=== PATIENT | male | born 1980 | race Caucasian/White ===

== ENCOUNTER 2024-06-04 15:49 | Outpatient (AMB) | payer OTHER, SELFPAY ==
[2024-06-04 15:56] VITALS: BP 122/86; PULSE 86; O2SAT 98; BMI 29.4
--- NOTE | 2024-06-04 15:56 | MHC.PC.OV ---
Vital Signs 06/04/24 15:56 Height 5 ft 9 in Weight 199 lb BMI 29.4 BP 122/86 Blood Pressure Location Rt brachial Position Sitting Pulse 86 Pulse Source Pulse Oximeter Pulse Oximetry (%) 98 Oxygen Delivery Method Room Air Intake Visit Reasons: DM Follow up Allergies SEASONAL ALLERGIES Allergy (Mild, Uncoded 06/18/22 15:48) ITCHY EYES Tobacco use date assessed: 06/04/24 Dental Screening Dental Screen Date: 06/04/24 Did you have a dental visit in the last 12 months?: Yes Did you have a dental problem in the last 6 months where you did not have access to dental care?: No Was dental information given to patient?: Patient has dentist HPI HPI Comments History of Present Illness Details 44 y/o male patient who presents to the clinic for T2DM. Patient of Kalen Callejas. Patient was last seen by PCP 2021. He presents today asking for Metformin refills. Reports that he has been getting automatic refills of Metformin for 1 year from PCP. He ran out of medications 3 weeks ago. His Last Lab work by PCP 2021. His A1C today Amb 11% Pt also used to follow up with Dr. Marcum for DVT and was taking Xaletro. He was last seen there last year and he has missed a few appointments. Pt reports that Dr. Marcum's Office has not returned his messages and they won't refill Xaletro until he is seen in person. Pt states that he does not have time to come to appointments because he has work. [facility] Medical History Kidney calculi Left leg DVT Type 2 diabetes mellitus Family History Mother Diabetes Myocardial infarct Prothrombin gene mutation Stroke Mental health disorder Daughter Prothrombin gene mutation Brother Substance use disorder Social History (Updated 05/09/22 @ 16:11 by Anjali Franco) Household Members: Spouse and Family Housing: House Patient Tobacco Use Status: Former Tobacco user e-Cigarette/Vaping Use: Never Used Second Hand Smoke Exposure: No service: No Current occupational status: employed Current occupation: [employer] Cognitive needs: No Hearing needs: No Vision needs: No Questionnaire PHQ-9 Over the last 2 weeks, how often have you been bothered by any of the following problems? 1. Little interest or pleasure in doing things: not at all 2. Feeling down, depressed, or hopeless: not at all 3. Trouble falling or staying asleep, or sleeping too much: not at all 4. Feeling tired or having little energy: not at all 5. Poor appetite or overeating: not at all 6. Feeling bad about yourself - or that you are a failure or have let yourself or your family down: not at all 7. Trouble concentrating on things, such as reading the newspaper or watching television: not at all 8. Moving or speaking so slowly that other people could have noticed. Or the opposite - being so fidgety or restless that you have been moving around a lot more than usual: not at all 9. Thoughts that you would be better off or of hurting yourself in some way: not at all Total score: 0 Depression Screening Interpretation: Negative Depression Screening Done: Yes 65250 - PHQ-9 Billing: Yes Source: Developed by Drs. Jorge Bartholomew, Tisha Brown, Akash Rhodes and colleagues, with an educational polo from [employer]. Thrive Questionnaire Date Thrive assessed: 06/04/24 I am a: Patient What is your living situation today?: I have a steady place to live Within the past 12 months, did the food you bought not last and you didn't have the money to get more?: Never true Within the past 12 months, did you worry whether your food would run out before you got money to buy more?: Never true Do you have trouble paying for medicines?: No Do you have trouble getting transportation to medical appointments?: No Do you have trouble paying your heating and electricity bill?: No Do you have trouble taking care of your child, family member or friend?: No Do you have trouble with day-to-day activities such as bathing, preparing meals, shopping, managing finances, etc.?: No Are you currently unemployed and looking for a job?: No Are you interested in more education?: No Please select the resources that you would like help with: None Currently or been in a relationship where the following occur: No concerns reported THRIVE Score: 0 AUDIT C Alcohol Use Questionnaire (AUDIT-C) 1. How often do you have a drink containing alcohol?: 2-3 times a week 2. How many drinks containing alcohol do you have on a typical day when you are drinking?: 3 or 4 3. How often do you have six or more drinks on one occasion?: Never Total Score: 4 Score Reviewed/Action Taken: Yes FRANCOIS-7 AMB Questionnaire FRANCOIS-7 Date FRANCOIS - 7 assessed: 06/04/24 Feeling nervous, anxious, or on edge: 0 = Not at all Not being able to stop or control worryin = Not at all Worrying too much about different things: 0 = Not at all Trouble relaxin = Not at all Being so restless that it is hard to sit still: 0 = Not at all Becoming easily annoyed or irritable: 0 = Not at all Feeling afraid as if something awful might happen: 0 = Not at all Total FRANCOIS-7 score (0-4 normal; 5-9 mild; 10-14 moderate; 15-21 severe): 0 Source: Developed by Drs. Jorge Bartholomew, Tisha Brown, Akash Rhodes and colleagues, with an educational polo from [employer]. FRANCOIS-7 Assessment Billing FRANCOIS-7 Assessment Tool: FRANCOIS-7 Assessment 15960 Review of Systems Const All systems reviewed & are unremarkable except as noted in HPI and below Physical exam (Primary Care) Vital Signs: Last Vital Signs Pulse 86 06/04/24 15:56 BP 122/86 06/04/24 15:56 Pulse Ox 98 06/04/24 15:56 Oxygen Delivery Method Room Air 06/04/24 15:56 BMI result Body Mass Index 29.4 Tobacco/Smoking Status: Tobacco use Status Tobacco use date assessed 06/04/24 06/04/24 15:59 Patient Tobacco Use Status Former Tobacco user 06/04/24 15:59 e-Cigarette/Vaping Use Never Used 06/04/24 15:59 PHQ-9: PHQ-9 Score PHQ-9: Total score 0 06/04/24 16:18 Depression Screening Interpretation: Negative Thrive Assessment: Date of Thrive Assessment Date Thrive assessed 06/04/24 06/04/24 15:59 Currently or been in a relationship where the following occur: No concerns reported Const General: no acute distress Orientation/consciousness: patient oriented x3 Neuro General: patient oriented x3, gait normal and moves all extremities Extrem General: Yes full ROM Psych Speech and movement: Normal speech and movement present Results AMB Hemoglobin A1c AMB Hemoglobin A1c 11.5 % Last Edit by DESIREE Solomon on 06/04/24 16:22 Results Reviewed Results Reviewed: Laboratory Last Values Hgb A1c (Clinic) 11.5 % (4.0-6.0) H 06/04/24 16:16 Coding Level of Care Code Est Pt Level 4 (24177) Diagnoses Type 2 diabetes mellitus with hyperglycemia, without long-term current use of insulin E11.65 Diabetes mellitus complication status: with hyperglycemia Diabetes mellitus jail insulin use: without jail use Chronic deep vein thrombosis (DVT) of lower extremity, unspecified laterality, unspecified vein I82.509 DVT location: lower extremity Affected thrombotic vein of extremity: unspecified vein of extremity Chronicity: chronic Laterality: unspecified laterality Additional Codes FRANCOIS-7 Assessment Billing - FRACNOIS-7 Assessment Tool: FRANCOIS-7 Assessment 36347 ([id number]) PHQ-9 - 62761 - PHQ-9 Billing: Yes ([id number]) Time Spent (min) 20 Assessment & Plan Assessment & Plan (1) Type 2 diabetes mellitus: Code(s): E11.9 - Type 2 diabetes mellitus without complications Category: Medical Qualifiers: Diabetes mellitus complication status: with hyperglycemia Diabetes mellitus oysterman insulin use: without jail use Qualified Code(s): E11.65 - Type 2 diabetes mellitus with hyperglycemia Plan: Ordered Labs to be done LENNY Informed Pt that I will not refill Metformin until I receive recent Lab work on Kidneys and Liver. Discussed in length Insulin and other injectable on additional to Oral medications. Pt did not seen to be interested on this idea. He mostly wanted his Metformin refilled. Discussed long-term effects of uncontrolled T2DM on major organs. (2) DVT (deep venous thrombosis): Code(s): I82.409 - Acute embolism and thrombosis of unspecified deep veins of unspecified lower extremity Category: Medical Qualifiers: DVT location: lower extremity Affected thrombotic vein of extremity: unspecified vein of extremity Chronicity: chronic Laterality: unspecified laterality Qualified Code(s): I82.509 - Chronic embolism and thrombosis of unspecified deep veins of unspecified lower extremity Plan: Adviced Pt that he will need to schedule an appointment with Dr. Marcum for f/u. Orders: Orders AMB Hemoglobin A1c Today Z13.9 - Encounter for screening, unspecified Complete Blood Count Auto Diff Today E11.65 - Type 2 diabetes mellitus with hyperglycemia Comprehensive Met. Panel Today E11.65 - Type 2 diabetes mellitus with hyperglycemia TSH reflex Free T4 Today E11.65 - Type 2 diabetes mellitus with hyperglycemia Hemoglobin A1c Today E11.65 - Type 2 diabetes mellitus with hyperglycemia Lipid Panel Today E11.65 - Type 2 diabetes mellitus with hyperglycemia
== END 2024-06-04 16:55 | disposition home or self-care (01) ==
LOC: HO.HMCC 15:49
PROVIDERS: PCP Nurse Practitioner Family; Visit Provider Nurse Practitioner Family
DX: E11.65 Type 2 diabetes mellitus with hyperglycemia (principal); I82.509 Chronic embolism and thrombosis of unspecified deep veins of unspecified lower extremity; Z13.9 Encounter for screening, unspecified

== ENCOUNTER → 2024-06-04 15:49 | Outpatient (BNVA) | payer OTHER, SELFPAY | PROVIDERS: PCP Nurse Practitioner Family; Visit Provider Nurse Practitioner Family | DX: E11.65 Type 2 diabetes mellitus with hyperglycemia (principal); I82.509 Chronic embolism and thrombosis of unspecified deep veins of unspecified lower extremity | CPT/HCPCS: 83036; 96127 ==

== ENCOUNTER 2024-06-06 08:10 | Outpatient (REF) | payer OTHER, SELFPAY ==
[2024-06-06 11:13] LABS: MANUAL DIFF FLAG NO
[2024-06-06 11:27] LABS: Basophils Absolute Auto 0.1 X10*3/uL (0.0-0.2); Basophils Percent Auto 1.1 % (0-2); Eosinophils Absolute Auto 0.2 X10*3/uL (0.0-0.4); Eosinophils Percent Auto 2.8 % (0-4); Hematocrit 44.8 % (42.0-52.0); Hemoglobin 15.9 g/dl (14.0-18.0); Imm Gran Abs Auto 0.04 X10*3/uL (0.00-0.03); Imm Gran Pct Auto 0.5 % (0.0-0.4); Lymphocytes Absolute Auto 1.9 X10*3/uL (1.2-4.9); Mean Corpuscular HGB Conc 35.5 g/dl (31.0-36.0); Mean Corpuscular Hemoglobin 30.5 pg (27.0-33.0); Mean Corpuscular Volume 85.8 fL (80.0-98.0); Mean Platelet Volume 9.8 fL (9.4-12.4); Monocytes Absolute Auto 0.7 X10*3/uL (0.1-1.2); Monocytes Percent Auto 8.9 % (2-11); Neutrophils Absolute Auto 4.5 x10*3/uL (2.0-8.3); Neutrophils Percent Auto 60.7 % (45-73); Platelet Count 210 X10*3/uL (160-400); Red Blood Count 5.22 X10*6/uL (4.60-5.80); Red Cell Distribution Width 11.9 % (11.0-16.0); White Blood Count 7.5 X10*3/uL (4.8-10.8)
[2024-06-06 11:36] LABS: Estimated Average Glucose 283 mg/dL; Hemoglobin A1C 430.0246 umol/L; Hemoglobin A1c % 11.5 % (<6.0); Total Hemoglobin (HGBA1C) 4193.0216 umol/L
[2024-06-06 11:49] LABS: Alanine Aminotransferase 31 U/L (0-40); Albumin Level 4.4 g/dL (3.5-5.0); Alkaline Phosphatase 56 U/L (39-117); Anion Gap 15 (12-20); Aspartate Amino Transferase 23 U/L (5-37); Bilirubin Total 0.6 mg/dL (0.0-1.0); Blood Urea Nitrogen 22 mg/dL (9-16); Calcium 8.8 mg/dL (8.4-10.2); Carbon Dioxide 26 mmol/L (22-29); Chloride 100 mmol/L (96-108); Cholesterol 207 mg/dL (<200); Estimated Glomerular Filt Rate > 60; Glucose Random 345 mg/dL (60-115); HDL Cholesterol 79 mg/dL (>40); LDL Cholesterol Calculated 111 mg/dL (<100); Potassium 4.5 mmol/L (3.3-5.1); Sodium 136 mmol/L (135-145); Total Protein 7.4 g/dL (6.5-8.0); Triglycerides 86 mg/dL (<150)
[2024-06-06 11:53] LABS: TSH reflex Free T4 0.66 uIU/mL (0.32-4.0)
== END 2024-06-06 08:11 | disposition home or self-care (01) ==
LOC: HO.HMGCLDS 08:10
PROVIDERS: PCP Nurse Practitioner Family; Visit Provider Nurse Practitioner Family
DX: E11.65 Type 2 diabetes mellitus with hyperglycemia (principal)
CPT/HCPCS: 36415; 80053; 80061; 83036; 84443; 85025

== ENCOUNTER → 2024-06-08 16:20 | Outpatient (BNV) | payer OTHER, SELFPAY | PROVIDERS: PCP Nurse Practitioner Family; Visit Provider Internal Medicine | DX: D68.52 Prothrombin gene mutation (principal); Z86.718 Personal history of other venous thrombosis and embolism; Z79.01 Long term (current) use of anticoagulants | CPT/HCPCS: 99214 ==

== ENCOUNTER 2025-01-14 06:01 | Outpatient (REF) | payer BC, SELFPAY ==
[2025-01-14 10:20] LABS: Appearance Urine Clear; Color Urine Yellow; Glucose Urine UA >=1000 mg/dL (Negative); Leukocyte Esterase Urine Negative (Negative); Nitrite Urine Negative (Negative); Specific Gravity - Urine >= 1.030 (1.005-1.025); UMIC TRIGGER UACC YES; Urine Blood Moderate (2+) (Negative); Urine Ketones Trace mg/dL (Negative); Urine Protein Negative (Neg-Trace)
[2025-01-14 10:23] LABS: Bacteria Urine None Seen (None Seen); Hyaline Casts Urine 0-2 /LPF (0-2); RBC Urine >20 /HPF (0-2); Squamous Epithelial Cell Urine 0-2 /HPF (0-2); WBC Urine 0-5 /HPF (0-5)
[2025-01-14 10:28] LABS: MANUAL DIFF FLAG NO
[2025-01-14 10:33] LABS: Basophils Absolute Auto 0.1 X10*3/uL (0.0-0.2); Basophils Percent Auto 0.9 % (0-2); Eosinophils Absolute Auto 0.1 X10*3/uL (0.0-0.4); Eosinophils Percent Auto 2.2 % (0-4); Hematocrit 42.2 % (42.0-52.0); Hemoglobin 14.8 g/dl (14.0-18.0); Imm Gran Abs Auto 0.03 X10*3/uL (0.00-0.03); Imm Gran Pct Auto 0.6 % (0.0-0.4); Lymphocytes Absolute Auto 1.6 X10*3/uL (1.2-4.9); Lymphocytes Percent Auto 30.3 % (20-40); Mean Corpuscular HGB Conc 35.1 g/dl (31.0-36.0); Mean Corpuscular Hemoglobin 30.5 pg (27.0-33.0); Mean Platelet Volume 9.8 fL (9.4-12.4); Monocytes Absolute Auto 0.5 X10*3/uL (0.1-1.2); Monocytes Percent Auto 9.6 % (2-11); Neutrophils Absolute Auto 3.1 x10*3/uL (2.0-8.3); Neutrophils Percent Auto 56.4 % (45-73); Platelet Count 190 X10*3/uL (160-400); Red Blood Count 4.85 X10*6/uL (4.60-5.80); Red Cell Distribution Width 12.1 % (11.0-16.0); White Blood Count 5.4 X10*3/uL (4.8-10.8)
[2025-01-14 11:13] LABS: Alanine Aminotransferase 22 U/L (0-40); Albumin Level 4.3 g/dL (3.5-5.0); Alkaline Phosphatase 47 U/L (39-117); Anion Gap 12 (12-20); Aspartate Amino Transferase 22 U/L (5-37); Bilirubin Total 0.6 mg/dL (0.0-1.0); Blood Urea Nitrogen 16 mg/dL (9-16); Calcium 9.1 mg/dL (8.4-10.2); Carbon Dioxide 30 mmol/L (22-29); Chloride 100 mmol/L (96-108); Cholesterol 192 mg/dL (<200); Estimated Glomerular Filt Rate > 60; Glucose Fasting 319 mg/dL (60-99); HDL Cholesterol 74 mg/dL (>40); LDL Cholesterol Calculated 108 mg/dL (<100); Sodium 138 mmol/L (135-145); Total Protein 6.8 g/dL (6.5-8.0); Triglycerides 52 mg/dL (<150)
[2025-01-14 11:15] LABS: TSH reflex Free T4 1.02 uIU/mL (0.32-4.0)
[2025-01-14 11:55] LABS: Creatinine Urine 89.69 mg/dL; Microalbum/Creatinine Ratio Ur 24.5 ug/mg cr (<30)
== END 2025-01-14 06:02 | disposition home or self-care (01) ==
LOC: HO.HMGCLDS 06:01
PROVIDERS: PCP Nurse Practitioner Family; Visit Provider Nurse Practitioner Family
DX: E11.65 Type 2 diabetes mellitus with hyperglycemia (principal)
CPT/HCPCS: 36415; 80053; 80061; 81001; 82043; 82570; 84443; 85025

== ENCOUNTER 2025-01-20 12:19 | Outpatient (AMB) | payer BC, SELFPAY ==
--- NOTE | 2025-01-20 12:22 | MHC.PC.OV ---
Vital Signs 01/20/25 12:24 Height 5 ft 9 in Weight 193 lb BMI 28.5 BP 122/80 Blood Pressure Location Lt brachial Position Sitting Pulse 88 Pulse Source Pulse Oximeter Pulse Oximetry (%) 99 Intake Visit Reasons: Annual PE Allergies SEASONAL ALLERGIES Allergy (Mild, Uncoded 01/20/25 13:20) ITCHY EYES Medication List - Last Reconciled 01/20/25 by NAYELI PierceP-BC FreeStyle Loni 2 [place] (flash glucose scanning reader) tid testing NS FreeStyle Loni 2 Sensor (flash glucose sensor) tid testing NS metformin ER 750 mg PO BID 30 days rivaroxaban 20 mg PO DAILY Tobacco use date assessed: 01/20/25 Dental Screening Dental Screen Date: 01/20/25 Did you have a dental visit in the last 12 months?: Yes Did you have a dental problem in the last 6 months where you did not have access to dental care?: No Was dental information given to patient?: Patient has dentist HPI Annual PE HPI Details History of Present Illness The patient is a 45-year-old male presenting with uncontrolled diabetes mellitus. He has a history of uncontrolled diabetes with a recent A1c level above 11%. The patient denies any history of pancreatitis, neoplasia syndrome type 2, or thyroid cancer. The patient also reports a history of nephrolithiasis, with recent passage of a kidney stone and associated microscopic hematuria. A CT urogram, cytology, and urine culture are planned for further evaluation. He has a history of deep vein thrombosis, with current discoloration in the left lower extremity related to a previous clot. The patient is currently on anticoagulation therapy and is under the care of oncology and hematology specialists. The patient reports peripheral neuropathy, but sensation is intact with monofilament testing. Health Maintenance - Referral to endocrinology for diabetes management - Declines vaccinations Social History Review of Systems - Cardiovascular: Denies chest pain, dyspnea. - Gastrointestinal: Denies abdominal pain, blood in stool, constipation, diarrhea. Physical Exam General: Cooperative, healthy appearing, comfortable, no acute distress and well developed Orientation: Patient oriented x3 Limitations: No limitations Head: Normal to inspection Ears: Hearing grossly normal bilaterally Nose: Normal external nose present Face and sinus: Normal facial exam Eyes: Appearance normal, both eyes and all related structures Neck: Normal visual inspection and Yes full ROM Respiratory: Normal respiratory effort and able to speak in complete sentences. Clear to auscultation bilaterally Cardiovascular: Regular rate and rhythm. Normal S1 and S2 GI: Normal to inspection. Soft to palpation and nontender Skin: Some discoloration to the left lower extremity related to a previous clot Neuro: Patient oriented x3. Positive sensation with use of monofilament despite neuropathy reported Extremities: Normal to inspection Results - Labs: A1c above 11% - Planned Tests: CT urogram, cytology, urine culture Plan For the management of uncontrolled diabetes mellitus, the patient will be referred to endocrinology for specialized care. The initiation of Jardiance and Mounjaro is planned to improve glycemic control. Regarding the history of nephrolithiasis, a CT urogram, cytology, and urine culture are planned to evaluate the recent episode of microscopic hematuria. The patient is advised to continue anticoagulation therapy under the guidance of oncology and hematology specialists for the management of previous deep vein thrombosis. Discussion Notes I discussed with the patient the importance of managing his uncontrolled diabetes and the need for referral to endocrinology for specialized care. We talked about starting Jardiance and Mounjaro to help control his blood sugar levels. I also explained the need for further evaluation of his kidney stone history with a CT urogram, cytology, and urine culture. Patient Instructions - Follow up with endocrinology for diabetes management. - Start taking Jardiance and Mounjaro as prescribed. - Complete the CT urogram, cytology, and urine culture as scheduled. 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 1. Little interest or pleasure in doing things: not at all 2. Feeling down, depressed, or hopeless: not at all 3. Trouble falling or staying asleep, or sleeping too much: not at all 4. Feeling tired or having little energy: not at all 5. Poor appetite or overeating: not at all 6. Feeling bad about yourself - or that you are a failure or have let yourself or your family down: not at all 7. Trouble concentrating on things, such as reading the newspaper or watching television: not at all 8. Moving or speaking so slowly that other people could have noticed. Or the opposite - being so fidgety or restless that you have been moving around a lot more than usual: not at all 9. Thoughts that you would be better off or of hurting yourself in some way: not at all Total score: 0 Depression Screening Interpretation: Negative Depression Screening Done: Yes 35233 - PHQ-9 Billing: Yes Source: Developed by Drs. Jorge Bartholomew, Tisha Brown, Akash Rhodes and colleagues, with an educational polo from [email or web address]. Thrive Questionnaire Date Thrive assessed: 06/04/24 I am a: Patient What is your living situation today?: I have a steady place to live Within the past 12 months, did the food you bought not last and you didn't have the money to get more?: Never true Within the past 12 months, did you worry whether your food would run out before you got money to buy more?: Never true Do you have trouble paying for medicines?: No Do you have trouble getting transportation to medical appointments?: No Do you have trouble paying your heating and electricity bill?: No Do you have trouble taking care of your child, family member or friend?: No Do you have trouble with day-to-day activities such as bathing, preparing meals, shopping, managing finances, etc.?: No Are you currently unemployed and looking for a job?: No Are you interested in more education?: No Please select the resources that you would like help with: None Currently or been in a relationship where the following occur: No concerns reported THRIVE Score: 0 AUDIT C Alcohol Use Questionnaire (AUDIT-C) 1. How often do you have a drink containing alcohol?: 2-4 times a month 2. How many drinks containing alcohol do you have on a typical day when you are drinking?: 1 or 2 3. How often do you have six or more drinks on one occasion?: Less than monthly Total Score: 3 FRANCOIS-7 AMB Questionnaire FRANCOIS-7 Date FRANCOIS - 7 assessed: 06/04/24 Feeling nervous, anxious, or on edge: 0 = Not at all Not being able to stop or control worryin = Not at all Worrying too much about different things: 0 = Not at all Trouble relaxin = Not at all Being so restless that it is hard to sit still: 0 = Not at all Becoming easily annoyed or irritable: 0 = Not at all Feeling afraid as if something awful might happen: 0 = Not at all Total FRANCOIS-7 score (0-4 normal; 5-9 mild; 10-14 moderate; 15-21 severe): 0 Source: Developed by Drs. Jorge Bartholomew, Tisha Brown, Akash Rhodes and colleagues, with an educational polo from [email or web address]. Physical exam (Primary Care) Vital Signs: Last Vital Signs Pulse 88 01/20/25 12:24 BP 122/80 01/20/25 12:24 Pulse Ox 99 01/20/25 12:24 BMI result Body Mass Index 28.5 Tobacco/Smoking Status: Tobacco use Status Tobacco use date assessed 01/20/25 01/20/25 12:25 Patient Tobacco Use Status Former Tobacco user 01/20/25 12:23 e-Cigarette/Vaping Use Never Used 01/20/25 12:23 PHQ-9: PHQ-9 Score PHQ-9: Total score 0 01/20/25 12:27 Depression Screening Interpretation: Negative Thrive Assessment: Date of Thrive Assessment Date Thrive assessed 06/04/24 01/20/25 12:23 Currently or been in a relationship where the following occur: No concerns reported Coding Level of Care Code Est Pt Level 3 (59843) Est Pt Prev Care 40-64y(96744) Diagnoses Type 2 diabetes mellitus with hyperglycemia, without long-term current use of insulin E11.65 Diabetes mellitus complication status: with hyperglycemia Diabetes mellitus termite exterminator helper insulin use: without senior care use Microscopic hematuria R31.29 Encounter for routine adult physical exam with abnormal findings Z00.01 Chronic deep vein thrombosis (DVT) of lower extremity, unspecified laterality, unspecified vein I82.509 DVT location: lower extremity Affected thrombotic vein of extremity: unspecified vein of extremity Chronicity: chronic Laterality: unspecified laterality Additional Codes PHQ-9 - 31093 - PHQ-9 Billing: Yes ([id number]) Assessment & Plan Assessment & Plan (1) Type 2 diabetes mellitus: Code(s): E11.9 - Type 2 diabetes mellitus without complications Category: Medical Qualifiers: Diabetes mellitus complication status: with hyperglycemia Diabetes mellitus termite exterminator helper insulin use: without termite exterminator helper use Qualified Code(s): E11.65 - Type 2 diabetes mellitus with hyperglycemia (2) Microscopic hematuria: Code(s): R31.29 - Other microscopic hematuria Category: Medical (3) Encounter for routine adult physical exam with abnormal findings: Code(s): Z00.01 - Encounter for general adult medical examination with abnormal findings Category: Medical (4) DVT (deep venous thrombosis): Code(s): I82.409 - Acute embolism and thrombosis of unspecified deep veins of unspecified lower extremity Category: Medical Qualifiers: DVT location: lower extremity Affected thrombotic vein of extremity: unspecified vein of extremity Chronicity: chronic Laterality: unspecified laterality Qualified Code(s): I82.509 - Chronic embolism and thrombosis of unspecified deep veins of unspecified lower extremity Plan . Orders: Orders Complete Blood Count Auto Diff Today E11.65 - Type 2 diabetes mellitus with hyperglycemia UA CC w/rflx Micro + Cult Today E11.65 - Type 2 diabetes mellitus with hyperglycemia Lipid Panel Today E11.65 - Type 2 diabetes mellitus with hyperglycemia Urine Cytology Today R31.29 - Other microscopic hematuria Comprehensive [place]. Panel Fast Today E11.65 - Type 2 diabetes mellitus with hyperglycemia TSH reflex Free T4 Today E11.65 - Type 2 diabetes mellitus with hyperglycemia CT urogram Today R31.29 - Other microscopic hematuria Urine Culture Today R31.29 - Other microscopic hematuria Referrals Endocrinology Referral E11.65 - Type 2 diabetes mellitus with hyperglycemia Medications: New tirzepatide (Mounjaro) for 4 weeks 2.5 mg (0.5 mL) subcut QWEEK 2 mL 0RF empagliflozin (Jardiance) 10 mg PO DAILY 30 tabs 3RF Changed From metformin ER 750 mg PO BID 30 days 60 tabs 1RF E11.65 - Type 2 diabetes mellitus with hyperglycemia To metformin ER 750 mg PO DAILY 30 tabs 1RF 30 days E11.65 - Type 2 diabetes mellitus with hyperglycemia
[2025-01-20 12:24] VITALS: BP 122/80; PULSE 88; O2SAT 99; BMI 28.5
== END 2025-01-20 13:19 | disposition home or self-care (01) ==
LOC: HO.HMCC 12:20
PROVIDERS: PCP Nurse Practitioner Family; Visit Provider Nurse Practitioner Family
DX: Z00.01 Encounter for general adult medical examination with abnormal findings (principal); E11.65 Type 2 diabetes mellitus with hyperglycemia; I82.502 Chronic embolism and thrombosis of unspecified deep veins of left lower extremity; R31.29 Other microscopic hematuria

== ENCOUNTER → 2025-01-20 12:19 | Outpatient (BNVA) | payer BC, SELFPAY | PROVIDERS: PCP Nurse Practitioner Family; Visit Provider Nurse Practitioner Family | DX: Z00.01 Encounter for general adult medical examination with abnormal findings (principal); E11.9 Type 2 diabetes mellitus without complications; E11.65 Type 2 diabetes mellitus with hyperglycemia; R31.29 Other microscopic hematuria; Z87.442 Personal history of urinary calculi; Z86.718 Personal history of other venous thrombosis and embolism | CPT/HCPCS: 83036; 96127 ==

== ENCOUNTER 2025-02-22 15:36 | Outpatient (REF) | payer BC, SELFPAY ==
--- NOTE | ~2025-02-22 | CT_ITS ---
CLINICAL HISTORY: R31.29 - Other microscopic hematuria Exam: CT urogram without and with IV contrast Comparison: None provided Findings: Ryland lung bases. 6 mm calyceal calculus lower pole right kidney. No calculus in the left kidney, ureters or bladder. No obstructive uropathy. No suspicious renal lesion is identified. Symmetrical contrast excretion of the kidneys, normal morphology of the renal collecting system. No apparent urothelial lesion is identified. Liver, gallbladder, spleen, pancreas, adrenal glands, reproductive organs are unremarkable. Unremarkable GI tract. Normal appendix. Unremarkable vasculature. No lymphadenopathy. No ascites or pneumoperitoneum. No acute osseous abnormality. Status post screw fixation of bilateral proximal femurs. Osteoarthritis of the bilateral hips. Mild degenerative changes of the thoracolumbar spine. Impression: Nonobstructing right nephrolithiasis. This document has been electronically signed by: Milla Garcia MD on 02/23/2025 15:59:59
--- OUTSIDE RECORDS SUMMARY | 2025-02-22 15:55 | XMS_ITS | Clinical Summary ---
Author Organization [facility] Address [address] [place] [address] [place] [id number] Phone Care Team Providers Care Social Science Instructor Name Role Phone Kalen Callejas [employer] Primary Care Provider + Allergies No known active allergies Medications warfarin (COUMADIN) 5 MG tablet Take 5 mg by mouth daily. Active XARELTO 20 mg Tab Take 20 mg by mouth daily. 06/06/2020 Active metFORMIN (GLUCOPHAGE-XR) 750 MG 24 hr tablet 1 TABLET WITH EVENING MEAL BID ORALLY 30 04/28/2020 Active Active Problems No known active problems Social History Tobacco Use Types Packs/Day Years Used Date Smoking Tobacco: Never Smokeless Tobacco: Never Alcohol Use Standard Drinks/Week Comments Yes 0 (1 standard drink = 0.6 oz pur e alcohol) Education Answer Date Recorded Are you interested in more education? Not on tanja e 11/23/2022 Are you concerned about learning? Not on file 11/23/2022 No 11/23/2022 No 11/23/2022 Digital Access Answer Date Recorded No 12/21/2022 No 12/21/2022 Reliable internet access at home? Not on file 12/21/2022 Device with a working camera? Not on file Intimate Partner Violence Answer Date R ecorded Are you denied basic needs s uch as food, clothing, or medical care? No 08/28/2024 In the past 12 months have y ou been in a relationship with a person who hurts, threatens, or tries to control you? No 08/28/2024 Are you denied basic needs s uch as food, clothing, or medical care? No 08/28/2024 In the past 12 months have y ou been in a relationship with a person who hurts, threatens, or tries to control you? No 08/28/2024 Sex and Gender Information Value Date Recorded Sex Assigned at Male 09/08/2019 8:48 AM EST Legal Sex Male 9:19 PM EDT Gender Identity Male 09/08/2019 8:48 AM EST Sexual Orientation Not on file Last Filed Vital Signs Vital Sign Reading Time Taken Comments Blood Pressure 114/75 08/28/2024 8:35 AM EST Pulse 81 08/28/2024 8:35 AM EST Temperature 37.2 C (99 F) 08/28/2024 8:35 AM EST Respiratory Rate 16 08/28/2024 8:35 AM EST Oxygen Saturation 97% 08/28/2024 8:35 AM EST Inhaled Oxygen Concentration - - Weight 86.2 kg (190 lb) 08/28/2024 6:36 AM EST Height 175.3 cm (5' 9 ) 08/28/2024 6:36 AM EST Body Mass Index 28.06 08/28/2024 6:36 AM EST Plan of Treatment Health Maintenance Due Date Last Done Comments Adult Td,Tdap Booster 1982 LIPID PANEL 1982 DEPRESSION SCREENING 1994 HEPATITIS C SCREENING 01/17/2000 HIV ONE-TIME SCREENING (18-6 5 YEARS) 01/17/2000 SCREENING FOR DIABETES 2017 CREATININE LEVEL 09/08/2020 09/08/2019 COVID-19 VACCINE (2023-2 5 season) 2024 SMOKING STATUS SCREENING (On ce After 26 Yrs) Completed 08/28/2024 HEPATITIS A VACCINES Aged Out No long er eligible based on patient's age to complete this topic HIB VACCINES Aged Out No longer eligi ble based on patient's age to complete this topic MENINGOCOCCAL VACCINES (ACWY) Aged Out No longer eligible based on patient's age to complete this topic MENINGOCOCCAL VACCINES (B) Aged Out N o longer eligible based on patient's age to complete this topic PNEUMOCOCCAL VACCINES (0-49 years) Aged Out No longer eligible based on patient's age to complete this topic Medical Devices Not on file Procedures Procedure Name Priority Date/Time Associated Diagnosis Comments BASIC METABOLIC PANEL STAT 09/08/2019 9:06 AM EST from Last 3 Months or Most Recently Relevant to Health Maintenance Results * (ABNORMAL) Basic metabolic panel (09/08/2019 9:06 AM EST) SODIUM 137 133 - 146 mmol/L [facility] CHLORIDE 99 96 - 108 mmol/L [facility] POTASSIUM 4.3 3.3 - 5.1 mmol/L [facility] CO2 27 21 - 35 mmol/L [facility] BUN 13 6 - 19 mg/dL [facility] CREATININE 0.80 0.5 - 1.5 mg/dL [facility] GLUCOSE 319(H) 70 - 99 mg/dL [facility] CALCIUM 9.3 8.4 - 10.3 mg/dL [facility] EGFR 114 >59 mL/min/1.7 3m2 [facility] Comment:If patient is black, multiply result by 1.159. Estimated glomerular filtration rate calculated using the CKD-EPI equation. ANION GAP 15 10 - 20 mmol/L [facility] Blood 09/08/2019 9:06 AM EST 09/08/2019 9:17 AM EST us Teofilo Rosario MD LAB BLOOD ORDERABLES Fi nal Result Performing Organization Address City/State/[facility] Co de Phone Number [facility] [address] [place] [address] from Last 3 Months or Most Recently Relevant to Health Maintenance Insurance [facility] POS EPO [facility] POS EPO [place] [address] [place] [facility] POS EPO [address] [place] [address] [place] Care Teams Social Science Instructor Relationship Specialty Start Date End Date Kalen Callejas NP [address] [place] [address] [email or web address] PCP - General Family Medicine 05/07/17 Additional Source Comments The information contained in this document represents components of the legal health record. It is not the complete legal health record.[facility]
[2025-02-22] MEDS: iohexoL 350 MG/ML 100 ML INFUS..BTL IV (16:53)
== END 2025-02-22 15:37 | disposition home or self-care (01) ==
LOC: HO.CT 15:36
PROVIDERS: PCP Nurse Practitioner Family; Visit Provider Nurse Practitioner Family
DX: R31.29 Other microscopic hematuria (principal)
CPT/HCPCS: 74178; Q9967

== ENCOUNTER → 2025-02-22 15:38 | Outpatient (BNV) | payer BC, SELFPAY | PROVIDERS: PCP Nurse Practitioner Family; Visit Provider Radiology Diagnostic Radiology | DX: N20.0 Calculus of kidney (principal) | CPT/HCPCS: 74178 ==

== ENCOUNTER 2025-03-04 14:41 | Outpatient (AMB) | payer BC, SELFPAY ==
--- OUTSIDE RECORDS SUMMARY | 2025-03-04 14:43 | XMS_ITS | Clinical Summary ---
Author Organization [facility] Address [address] [place] [address] [place] [address] Phone Care Team Providers Care Horticultural Worker Name Role Phone Kalen Callejas OFFICE SERVICES ASSOCIATE Primary Care Provider + Allergies No known [...] EST) SODIUM 137 133 - 146 mmol/L [facility] CHLORIDE 99 96 - 108 mmol/L [facility] POTASSIUM 4.3 3.3 - 5.1 mmol/L [facility] CO2 27 21 - 35 mmol/L [facility] BUN 13 6 - 19 mg/dL [facility] CREATININE 0.80 0.5 - 1.5 mg/dL [facility] GLUCOSE 319(H) 70 - 99 mg/dL [facility] CALCIUM 9.3 8.4 - 10.3 mg/dL [facility] EGFR 114 >59 mL/min/1.7 3m2 [facility] Comment:If patient is black, multiply result by 1.159. Estimated glomerular filtration rate calculated using the CKD-EPI equation. ANION GAP 15 10 - 20 mmol/L [facility] Blood 09/08/2019 9:06 AM EST 09/08/2019 9:17 AM EST us Teofilo Rosario MD LAB BLOOD ORDERABLES Fi nal Result Performing Organization Address City/State/[facility] Co de Phone Number [facility] [address] [place] [address] from Last 3 Months or Most Recently Relevant to Health Maintenance Insurance [facility] E[facility] POS EPO [place] [address] [place] [facility] POS EPO [place] [place] [address] [place] Care Teams Horticultural Worker Relationship Specialty Start Date End Date Kalen Callejas NP [address] [place] [address] [email or web address] PCP - General Family Medicine 05/07/17 Additional Source Comments The information contained in this document represents components of the legal health record. It is not the complete legal health record.[facility]
--- NOTE | 2025-03-04 14:46 | A.OFFVIS_ITS ---
Vital Signs 03/04/25 14:56 Height 5 ft 9 in Weight 187 lb 6.287 oz BMI 27.7 BP 88/58 L Blood Pressure Location Rt brachial Position Sitting Pulse 89 Pulse Source Pulse Oximeter Pulse Oximetry (%) 98 Oxygen Delivery Method Room Air Intake Visit Reasons: Type 2 diabetes mellitus with hyperglycemia Intake Note: New patient internally referred by PCP for T2DM with hyperglycemia. Patient stated he does have testing supplies but does not check BG regularly and is unsure what brand he uses. Last Diabetic Eye exam: Due, over 2 years. Patient stated he does not have a follow up appointment and currently does not want to see an Eye doctor. Patient was advised if he changes his mind and needs a referral to contact our office and the provider will place one. Last Podiatry Visit: Does not see a Food Packer Random Glucose: 197 mg/dl HgA1C: 11.5% 01/20/2025 Commissioning Editor Required: No Accompanied by: Self / Same As Patient Allergies SEASONAL ALLERGIES Allergy (Mild, Uncoded 03/04/25 14:57) ITCHY EYES HPI Comments Details: 45 YO M who is seen in consultation for T2DM at the request of PCP. Initially diagnosed with T2DM in couple of mos ago . Progressed from prediabetes . Was initially started on treatment with metformin . Current regimen Jardiance 10 mg QD not taken yet . Metformin ER750 mg QD Mounjaro 2.5 mg Qwkly Not Checks sugars times per day. Runs over 300 Unfortunately, patient did not bring sensor, glucometer or log book to visit Family history of T2DM in both parents . Has eyes checked yearly, last eye exam 2022 , denies retinopathy. Denies neuropathy, Not sees podiatry. Denies nephropathy,Not on LANG/ARB. Not Has HLD, Not on statin. Last LDL [] as measured on []. Denies CAD. Had diabetes education. 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 Absence of acromegalic features. Neck exam reveals nl size thyroid about 15 gms. No thyroid nodules palpable. No carotid bruits present. Lungs CTA. Heart S1 S2, Reg R/R. No M/R/ G. Skin exam reveals absence of vitiligo or acanthosis nigricans. Abdominal exam reveals Soft NT/ND with NA BS. No organomegaly present. Neck Other: . Extrem Other: Visual exam of foot performed. No ulcerations or open lesions. No onchomycosis, no callouses.Pulses 2 + distally Sensation intact to monofilament exam. Vibratory sensation sensed is intact with 128 Hz tuning fork Assessment & Plan Assessment & Plan (1) Type 2 diabetes mellitus: Code(s): E11.9 - Type 2 diabetes mellitus without complications Category: Medical Qualifiers: Diabetes mellitus complication status: with hyperglycemia Diabetes me llitus assisted insulin use: without petroleum terminal plant operator use Qualified Code(s): E11.65 - Type 2 diabetes mellitus with hyperglycemia Plan: This is a 45-year-old white male with a history of ? TYpe 1 vs type 2 diabetes being treated , metformin and Mounjaro with previous poor glycemic control and no known microvascular or macrovascular complications Plan is to check anti-eliana 65 antibodies to rule out type 1 diabetes. Hard to make adjustments in the regimen is no data today present . Initiated a Loni 3+ sensor We will refer patient to community health educator and supervisor bottle house cleaners. Most likely will need to initiate insulin once have more data regardless of what type of diabetes patient has considering her probably has glucose toxicity. Discussed extensively with patient the correlation of poor glycemic control with development of progression of complications Orders: Orders Glutamic acid decarboxylase Ab Today E11.65 - Type 2 diabetes mellitus with hyperglycemia Referrals Diabetes Education Referral E11.65 - Type 2 diabetes mellitus with hyperglycemia Nutrition/Dietitian Referral E11.65 - Type 2 diabetes mellitus with hyperglycemia Coding Level of Care Code New Pt Level 5 (98032) Diagnoses Type 2 diabetes mellitus with hyperglycemia, without long-term current use of insulin E11.65 Diabetes mellitus complication status: with hyperglycemia Diabetes mellitus petroleum terminal plant operator insulin use: without petroleum terminal plant operator use
[2025-03-04 14:56] VITALS: BP 88/58; PULSE 89; O2SAT 98; BMI 27.7
[2025-03-04 15:08] LABS: Glucose, Whole Blood 197 mg/dL (60-115)
== END 2025-03-04 15:49 | disposition home or self-care (01) ==
LOC: HO.ENCR 14:41
PROVIDERS: PCP Nurse Practitioner Family; Visit Provider Internal Medicine Endocrinology, Diabetes & Metabolism
DX: E11.65 Type 2 diabetes mellitus with hyperglycemia (principal)
CPT/HCPCS: 99204

== ENCOUNTER → 2025-03-04 14:41 | Outpatient (BNVA) | payer BC, SELFPAY | PROVIDERS: PCP Nurse Practitioner Family; Visit Provider Internal Medicine Endocrinology, Diabetes & Metabolism | DX: E11.65 Type 2 diabetes mellitus with hyperglycemia (principal) | CPT/HCPCS: 82947 ==

== ENCOUNTER 2025-03-07 13:41 | Emergency (ER) | payer BC, SELFPAY ==
[2025-03-07] VITALS (8 sets, daily range): BP systolic 104–125; BP diastolic 59–88; PULSE 60–89; RESP 12–16; TEMP 36.6–36.9; O2SAT 98–100; BMI 27.5
--- NOTE | ~2025-03-07 | CT_ITS ---
CLINICAL HISTORY: hematuria r o renal stone CT abdomen and pelvis without contrast Comparison: CT/SR - CT UROGRAM - 02/22/25 15:49 EDT Findings: CT abdomen: Lung bases are clear. No acute bony abnormality. Unenhanced liver, spleen, pancreas, gallbladder, and adrenal glands are unremarkable. Unchanged 7 mm calculus within the lower pole of the right kidney. No significant perinephric stranding is identified. No right ureteral calculi. Unenhanced left kidney is unremarkable. Moderate ingested contents within the stomach. Small bowel loops are of normal caliber. Many of the small bowel loops are fluid-filled. Fat containing ventral hernia at the level of the umbilicus. CT pelvis: Urinary bladder is moderately distended. No bladder calculi or bladder wall thickening. Scattered diverticuli within the colon without findings of diverticulitis. No findings of appendicitis. Metal artifact from surgical screws within the proximal femurs bilaterally. Prominent cortical bump of the anterior femoral head/neck junction this is identified bilaterally with large right-sided os acetabula artery. Moderate degenerative change of both hip joints. IMPRESSION: 1. Unchanged nonobstructing right renal calculus. 2. Postsurgical change of both hip joints with moderate degenerative change as above. This document has been electronically signed by: Roberto Boles MD on 03/07/2025 17:38:11
--- NOTE | 2025-03-07 13:46 | ED_ITS ---
HPI - General Adult General Chief complaint: Urogenital-Male Stated complaint: sob, dizziness, low bp Time Seen by Provider: 03/07/25 15:50 Source: patient Mode of arrival: ambulatory Limitations: no limitations History of Present Illness ED Provider: SANTA ROBERT PA-C HPI narrative: 45 year old male with pmhx significant for DM, DVT on xarelto, and nephrolithiasis presents to the ED today for evaluation of hematuria. Patient states that 1 week ago he began having hematuria that worsened over 5 days accompanied by intermittent pain with urination. The dysuria was alleviated at the end of 5 days then 3 days ago returned and worsened this morning with very dark hematuria with restricted urine flow. Patient voices concern for stone being lodged near opening or urethra. Urination provokes pain and there is no reported pain while not urinating. The quality of the pain is described as sharp and similar to passage of previous stone. No radiation. Denies abdominal pain or flank pain. Denies penile bleeding or discharge. Denies concern for STDs. He also reports recent low BP readings at home over the last 6 weeks since started mounjaro. Reports his appetite has been diminished and that he has not been staying adequately hydrated as he has not desire to drink water anymore. He admits to intermittent episodes of dizziness on standing that resolves with rest. He has not discussed this with his prescriber. Denies any syncopal episodes, vision changes, headache, N/V. Related Data Previous Rx's ?Medication ?Instructions ?Recorded FreeStyle Loni 2 [place] (flash #1 ea 06/18/22 glucose scanning reader) FreeStyle Loni 2 Sensor (flash #1 ea 06/18/22 glucose sensor) rivaroxaban 20 mg tablet 20 mg PO DAILY #90 tabs 05/29 08/21 empagliflozin 10 mg tablet 10 mg PO DAILY #30 tabs (Jardiance) metformin 750 mg tablet,extended 750 mg PO DAILY 30 da ys #30 tabs 01/20/25 release 24 hr tirzepatide 2.5 mg/0.5 mL 2.5 mg (0.5 mL) subcut QWEEK #2 mL 02/14/25 subcutaneous pen injector (Mounjaro) cefuroxime axetil 250 mg tablet 250 mg PO BID 5 days # 10 tabs 03/07/25 Allergies Allergy/AdvReac Type Severity Reaction Status Date / Time SEASONAL ALLERGIES Allergy Mild ITCHY EYES Uncoded 03/07/25 13:45 Review of Systems 2 Review of Systems: Yes all other systems are reviewed and are negative [facility] Past Medical History Attestation statement: The following information was validated with the patient. 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 Skin: Warm, dry, intact. No rashes or lesions. Head: Normocephalic, atraumatic. EENT: Hearing is intact b/l. Neck: Trachea midline.? Cardiac: Chest wall symmetric. RRR. Lungs: Normal respiratory effort without accessory muscle use. CTA bilaterally. Abdomen: Soft, non-tender, non-distended. No rebound tenderness or guarding. Positive BS x4. sensitive exam deferred. Back: No CVA tenderness Ext: Upper and lower extremities atraumatic, without tenderness, deformity, swelling or erythema. Full ROM throughout. Neuro: AOx3. Normal speech. CN 2-12 grossly intact. normal finger to nose, heel to sosa. Ambulating with steady gait. Psych: Appropriate mood and affect. Responds appropriately to questions. Course Course Course Narrative: Rapid medical examination performed in triage by Tracie Seth PA-C. Patient is a 45 year old assigned male at presenting to the emergency department with dizziness, lightheadedness, and penile bleeding. Detailed physical exam and review of systems are deferred to the airflight attendants supervisor. Labs ordered. Patient placed back in the waiting room pending room availability and results. Reevaluation(s) Reevaluation #1: CBC without leukocytosis or left shift. Normocytic anemia, H and H stable and above transfusion threshold. Chemistry without acute electrolyte abnormality requiring intervention. No FEMI. Random glucose 167. No anion gap. Liver function WNL. Negative COVID, flu, RSV. Urine is infected. CT abdomen/pelvis showing unchanged nonobstructing right renal calculi. No obstructing renal calculi. no acute findings. > ortho vitals negative > will treat UTI w/ ceftin. > dizziness/ low bp likely secondary from recent mounjaro addition/ decreased po intake. advised f/u with outpatient provider and to increase oral hydration. he is not symptomatic in ED. Patient has remained stable throughout ED visit today. Discussed worrisome signs and symptoms and when to return to the ED. All questions answered at this time. Patient is agreeable with disposition and stable for discharge. Medical Decision Making Medical Decision Making [facility] Narrative: 45 year old male with pmhx significant for DM, DVT on xarelto, and nephrolithiasis presents to the ED today for evaluation of hematuria. Vital signs stable. Physical exam unremarkable no abdominal tenderness, CVA tenderness. exam is nonfocal, cerebellum is intact. ambulating with steady gait. Differentials: UTI, nephrolithiasis, renal colic, hydronephrosis, pyelonephritis, anemia, electrolyte abnormality, dehydration, medication SE, orthostatic hypotension. unlikely CVA/TIA, arrhythmia, ACS, cerebellar stroke Plan: labs, UA, CT, ortho vitals Differential Diagnosis Differential Diagnoses: The differential diagnosis associated with the presentation includes as above Lab Data [facility] Lab Attestation statement: I reviewed the patient's lab results. as above. 03/07/25 14:08 08/10/25 14:08 Labs: Lab Results 03/07/25 Range/Units 14:08 WBC 6.7 (4.8-10.8) X10*3/uL RBC 4.39 L (4.60-5.80) X10*6/uL Hgb 13.2 L (14.0-18.0) g/dl Hct 36.5 L (42.0-52.0) % MCV 83.1 (80.0-98.0) fL MCH 30.1 (27.0-33.0) pg MCHC 36.2 H (31.0-36.0) g/dl RDW 12.0 (11.0-16.0) % Plt Count 172 (160-400) X10*3/uL MPV 9.0 L (9.4-12.4) fL Immature Gran % (Auto) 0.1 (0.0-0.4) % Neut % (Auto) 57.8 (45-73) % Lymph % (Auto) 30.6 (20-40) % [place] % (Auto) 9.2 (2-11) % Eos % (Auto) 1.6 (0-4) % Baso % (Auto) 0.7 (0-2) % Lymph # (Auto) 2.1 (1.2-4.9) X10*3/uL [place] # (Auto) 0.6 (0.1-1.2) X10*3/uL Eos # (Auto) 0.1 (0.0-0.4) X10*3/uL Baso # (Auto) 0.1 (0.0-0.2) X10*3/uL Abs Immat Gran (auto) 0.01 (0.00-0.03) X10*3/uL Absolute Neuts (auto) 3.9 (2.0-8.3) x10*3/uL Absolute Nucleated RBC 0.000 (0.0-0.012) X10*3/uL Nucleated RBC % (auto) 0.0 (0.0-0.2) /100WBC Sodium 140 (135-145) mmol/L Potassium 3.3 (3.3-5.1) mmol/L Chloride 104 (96-108) mmol/L Carbon Dioxide 28 (22-29) mmol/L Anion Gap 11 L (12-20) BUN 15 (9-16) mg/dL Creatinine 0.86 (0.5-1.4) mg/dL Estim Creat Clear Calc 110.7 Estimated GFR > 60 Random Glucose 167 H (60-115) mg/dL Calcium 9.1 (8.4-10.2) mg/dL Magnesium 2.0 (1.6-2.6) mg/dL Total Bilirubin 0.6 (0.0-1.0) mg/dL AST 23 (5-37) U/L ALT 19 (0-40) U/L Alkaline Phosphatase 45 (39-117) U/L Total Protein 6.8 (6.5-8.0) g/dL Albumin 4.4 (3.5-5.0) g/dL Urine Color BROWN Urine Appearance Turbid Urine pH 6.0 (5.0-9.0) Ur Specific [place] >= 1.030 H (1.005-1.025) Urine Protein 100 (2+) H (Neg-Trace) mg/dL Urine Glucose (UA) Negative (Negative) mg/dL Urine Ketones Trace (Negative) mg/dL Urine Blood Large (3+) H (Negative) Urine Nitrite Negative (Negative) Ur Leukocyte Esterase Negative (Negative) Urine RBC >20 H (0-2) /HPF Urine WBC 0-5 (0-5) /HPF Ur Squamous Epith Cells 0-2 (0-2) /HPF Calcium Oxalate Crystal Present Urine Bacteria 1+ (None Seen) Hyaline Casts 0-2 (0-2) /LPF Influenza Type A (PCR) NEGATIVE (Negative) Influenza Type B (PCR) NEGATIVE (Negative) RSV RNA Qual (PCR) NEGATIVE (Negative) SARS-CoV-2 RNA (RT-PCR) NEGATIVE (Negative) Independent Interpretation I performed an independent interpretation of an: CT Scan Interpretation: ct a/p without obstructing renal stone, no hydronephrosis Radiology Impression Discussion of test interpretation with radiology: I have reviewed the radiologist's reading. Radiologist Impression: Procedure(s): CT abdomen pelvis wo IV con Accession Number(s): [id number] cc: Kalen Callejas REGULATORY LEAD-; Santa Robert~ Report Number: [id number]: Total DLP = 475.00 mGy-cm CLINICAL HISTORY: hematuria r o renal stone CT abdomen and pelvis without contrast Comparison: CT/SR - CT UROGRAM - 02/22/25 15:49 EDT Findings: CT abdomen: Lung bases are clear. No acute bony abnormality. Unenhanced liver, spleen, pancreas, gallbladder, and adrenal glands are unremarkable. Unchanged 7 mm calculus within the lower pole of the right kidney. No significant perinephric stranding is identified. No right ureteral calculi. Unenhanced left kidney is unremarkable. Moderate ingested contents within the stomach. Small bowel loops are of normal caliber. Many of the small bowel loops are fluid-filled. Fat containing ventral hernia at the level of the umbilicus. CT pelvis: Urinary bladder is moderately distended. No bladder calculi or bladder wall thickening. Scattered diverticuli within the colon without findings of diverticulitis. No findings of appendicitis. Metal artifact from surgical screws within the proximal femurs bilaterally. Prominent cortical bump of the anterior femoral head/neck junction this is identified bilaterally with large right-sided os acetabula artery. Moderate degenerative change of both hip joints. IMPRESSION: 1. Unchanged nonobstructing right renal calculus. 2. Postsurgical change of both hip joints with moderate degenerative change as above. This document has been electronically signed by: Roberto Boles MD on 03/07/2025 17:38:11 Prescription Management I considered prescription management with: Antibiotic Social Determinants Patient?s care significantly limited by Social Determinants of Health including: Other Social Determinant of Health Critical Care Time Critical Care Time Critical Care Time: No Discharge Plan Discharge Clinical Impression: Acute UTI, Dehydration Patient Disposition: Home, Self-Care Instructions: Dehydration (ED), Urinary Tract Infection in Men (ED) Additional Instructions: Your blood work is reassuring. I have suspicion that your blood pressure is dropping, causing you to feel dizzy. This could be a side effect from your mounjaro and recent decreased appetite. Your blood pressure stayed within normal range today. I advise to you stay adequately hydrated throughout the day to balance this out. Please follow up with your prescriber to inform them of your symptoms. The CT scan of your abdomen shows a small stone within your right kidney, unchanged from prior scan. No other obstructing renal or ureteral stones. Your urine today is positive for infection. Ceftin is an antibiotic that has been sent to your pharmacy. Take this as prescribed and do not miss any doses. You must complete the entire course of antibiotics. If you do not, there is a risk of the infection coming back or worsening. I have provided you with a referral to a urologist. Please contact them to establish care, they will not call you. Follow up with your primary care provider as needed. If you develop a fever or new/ worsening symptoms call 911 or come back to the ER for further evaluation. Prescriptions: New cefuroxime axetil 250 mg tablet 250 mg PO BID 5 Days Qty: 10 0RF No Action (DME) FreeStyle Loni 2 [place] Misc See Rx Instructions .Route Qty: 1 3RF Rx Instructions: tid testing (DME) FreeStyle Loni 2 Sensor Kit See Rx Instructions .Route Qty: 1 3RF Rx Instructions: tid testing Mounjaro 2.5 mg/0.5 mL pen injector 2.5 mg subcut QWEEK Qty: 2 0RF Rx Instructions: for 4 weeks rivaroxaban 20 mg Tablet 20 mg PO DAILY Qty: 90 4RF Rx Instructions: must administer with evening meal Jardiance 10 mg tablet 10 mg PO DAILY Qty: 30 3RF metformin 750 mg tablet extended release 24 hr 750 mg PO DAILY 30 Days Qty: 30 1RF Referrals: [facility] [Provider Group, Urology] Kalen Callejas, REGULATORY LEAD-BC [Primary Care Provider, Internal Medicine] Interventions: ED Discharge Assessment Last Done: 03/07/25 20:12 Discharge Date/Time: 03/07/25 20:13 Print Language: Citizen [place]
--- NOTE | 2025-03-07 13:47 | ECG_ITS ---
Test Reason : DIZZY Blood Pressure : */* mmHG Vent. Rate : 77 BPM Atrial Rate : 77 BPM P-R Int : 174 ms QRS Dur : 98 ms QT Int : 382 ms P-R-T Axes : 62 21 36 degrees QTcB Int : 432 ms Normal sinus rhythm Normal ECG No previous ECGs available Referred By: Tracie Seth Electronically Signed By: Maik Mcgrath
--- OUTSIDE RECORDS SUMMARY | 2025-03-07 14:10 | XMS_ITS | Clinical Summary ---
Author Organization [facility] Address [address] [place] [address] [place] [id number] Phone Care Team Providers Care Automobile Body Customizer Name Role Phone Kalen Callejas FURNITURE RESTORER Primary Care Provider + Allergies No known [...] 2017 CREATININE LEVEL 09/08/2020 09/08/2019 COVID-19 VACCINE ( - 2023-2 5 season) 2024 SMOKING STATUS SCREENING (On [...] EST) SODIUM 137 133 - 146 mmol/L [facility] CHLORIDE 99 96 - 108 mmol/L [facility] POTASSIUM 4.3 3.3 - 5.1 mmol/L [facility] CO2 27 21 - 35 mmol/L [facility] BUN 13 6 - 19 mg/dL [facility] CREATININE 0.80 0.5 - 1.5 mg/dL [facility] GLUCOSE 319(H) 70 - 99 mg/dL [facility] CALCIUM 9.3 8.4 - 10.3 mg/dL [facility] EGFR 114 >59 mL/min/1.7 3m2 [facility] Comment:If patient is black, multiply result by 1.159. Estimated glomerular filtration rate calculated using the CKD-EPI equation. ANION GAP 15 10 - 20 mmol/L [facility] Blood 09/08/2019 9:06 AM EST 09/08/2019 9:17 AM EST us Teofilo Rosario MD LAB BLOOD ORDERABLES Fi nal Result [facility] [address] [place] [address] from Last 3 Months or Most Recently Relevant to Health Maintenance Insurance [facility] EPO [facility] EPO [facility] POS EPO [employer] [employer] [place] [employer] Care Teams Automobile Body Customizer Relationship Specialty Start Date End Date Kalen Callejas NP [facility] [place] [address] PCP - General Family Medicine 05/07/17 Additional Source Comments The information contained in this document represents components of the legal health record. It is not the complete legal health record.[facility]
[2025-03-07 14:16] LABS: MANUAL DIFF FLAG NO
[2025-03-07 14:20] LABS: Hematocrit 36.5 % (42.0-52.0); Hemoglobin 13.2 g/dl (14.0-18.0); Imm Gran Abs Auto 0.01 X10*3/uL (0.00-0.03); Imm Gran Pct Auto 0.1 % (0.0-0.4); Lymphocytes Absolute Auto 2.1 X10*3/uL (1.2-4.9); Mean Corpuscular HGB Conc 36.2 g/dl (31.0-36.0); Mean Corpuscular Hemoglobin 30.1 pg (27.0-33.0); Mean Corpuscular Volume 83.1 fL (80.0-98.0); NRBC Abs Auto 0.000 X10*3/uL (0.0-0.012); NRBC Pct Auto 0.0 /100WBC (0.0-0.2); Platelet Count 172 X10*3/uL (160-400); Red Blood Count 4.39 X10*6/uL (4.60-5.80); White Blood Count 6.7 X10*3/uL (4.8-10.8)
[2025-03-07 14:29] LABS: Appearance Urine Turbid; Glucose Urine UA Negative (Negative); PH 6.0 (5.0-9.0); UMIC TRIGGER UACC YES
[2025-03-07 14:30] LABS: Specific Gravity - Urine >= 1.030 (1.005-1.025)
[2025-03-07 14:35] LABS: Alanine Aminotransferase 19 U/L (0-40); Albumin Level 4.4 g/dL (3.5-5.0); Alkaline Phosphatase 45 U/L (39-117); Anion Gap 11 (12-20); Aspartate Amino Transferase 23 U/L (5-37); Blood Urea Nitrogen 15 mg/dL (9-16); Calcium 9.1 mg/dL (8.4-10.2); Carbon Dioxide 28 mmol/L (22-29); Chloride 104 mmol/L (96-108); Creatinine Clr Calc Pharmacy 110.7; Estimated Glomerular Filt Rate > 60; Magnesium 2.0 mg/dL (1.6-2.6); Potassium 3.3 mmol/L (3.3-5.1); Sodium 140 mmol/L (135-145); Total Protein 6.8 g/dL (6.5-8.0)
[2025-03-07 14:58] LABS: Resp Syncy Virus RNA Qual PCR NEGATIVE (Negative); SARS COV2 PCR INHOUSE NEGATIVE (Negative)
== END 2025-03-07 20:13 | disposition home or self-care (01) ==
PROVIDERS: Physician Assistant Medical; Emergency Provider Emergency Medicine; PCP Nurse Practitioner Family
DX: N39.0 Urinary tract infection, site not specified (principal); E86.0 Dehydration; R06.02 Shortness of breath; R42 Dizziness and giddiness; Z79.01 Long term (current) use of anticoagulants; Z79.899 Other long term (current) drug therapy; Z03.818 Encounter for observation for suspected exposure to other biological agents ruled out
CPT/HCPCS: 74176; 80053; 81001; 83735; 85025; 87637; 93005; 99284

== ENCOUNTER → 2025-03-07 13:47 | Outpatient (BNV) | payer BC, SELFPAY | PROVIDERS: Emergency Provider Emergency Medicine; PCP Nurse Practitioner Family; Visit Provider Internal Medicine Cardiovascular Disease | DX: R42 Dizziness and giddiness (principal) | CPT/HCPCS: 93010 ==

== ENCOUNTER → 2025-03-07 16:00 | Outpatient (BNV) | payer BC, SELFPAY | PROVIDERS: Emergency Provider Emergency Medicine; PCP Nurse Practitioner Family; Visit Provider Radiology Diagnostic Radiology | DX: N20.0 Calculus of kidney (principal) | CPT/HCPCS: 74176 ==

== ENCOUNTER 2025-05-05 15:11 | Outpatient (AMB) | payer BC, SELFPAY ==
--- NOTE | 2025-05-05 15:25 | MHC.OFFVIS ---
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 Required: No Accompanied by: Self / Same As Patient Allergies SEASONAL ALLERGIES Allergy (Mild, Uncoded 03/07/25 13:45) ITCHY EYES PFSH Medical History (Updated 05/05/25 @ 16:12 by Gianluca Gillette MD) Kidney calculi Type 2 diabetes mellitus Left leg DVT Surgical History History of hip surgery Family History Mother Diabetes Myocardial infarct Prothrombin gene mutation Stroke Mental health disorder Daughter Prothrombin gene mutation Brother Substance use disorder Social History Household Members: Spouse and Family Housing: House Patient Tobacco Use Status: Former Tobacco user e-Cigarette/Vaping Use: Never Used Second Hand Smoke Exposure: No service: No Current occupational status: employed Current occupation: [employer] Cognitive needs: No Hearing needs: No Vision needs: No Office Procedures Post Void Residual Post Residual Void Post Void Residual (PVR): 43 [id number] Void Residual by ultrasound Results AMB Urinalysis, Automated UA Leukoctes 0 Chas/uL Last Edit by Laquita Saldana MA on 05/05/25 17:08 UA Nitrite Negative Last Edit by Laquita Saldana MA on 05/05/25 17:08 UA Urobilinogen 0.2 mg/dL Last Edit by Laquita Saldana MA on 05/05/25 17:08 UA Protein 0 mg/dL Last Edit by Laquita Saldana MA on 05/05/25 17:08 UA pH 7.5 Last Edit by Laquita Saldana MA on 05/05/25 17:08 UA Blood 0 Jose R/uL Last Edit by Laquita Saldana MA on 05/05/25 17:08 UA Specific [place] 1.000 Last Edit by Laquita Saldana MA on 05/05/25 17:08 UA Ketone Negative Last Edit by Laquita Saldana MA on 05/05/25 17:08 UA Bilirubin 0 mg/dL Last Edit by Laquita Saldana MA on 05/05/25 17:08 UA Glucose 0 mg/dL Last Edit by Laquita Saldana MA on 05/05/25 17:08 Assessment & Plan Assessment & Plan (1) Kidney calculi: Code(s): N20.0 - Calculus of kidney Category: Medical Orders: Orders AMB Urinalysis Automated Today Z13.9 - Encounter for screening, unspecified AMB Post Void Residual by ultrasound Today R31.29 - Other microscopic hematuria Coding Diagnoses Kidney calculi N20.0 CPT Codes Post Residual Void - PVR CPT Code: 69822-[id number] Void Residual by ultrasound ([id number])
== END 2025-05-05 16:57 | disposition home or self-care (01) ==
LOC: HO.HUSH 15:11
PROVIDERS: PCP Nurse Practitioner Family; Visit Provider Urology
DX: Z13.9 Encounter for screening, unspecified (principal)

== ENCOUNTER → 2025-05-05 15:11 | Outpatient (BNVA) | payer BC, SELFPAY | PROVIDERS: PCP Nurse Practitioner Family; Visit Provider Urology | DX: R31.29 Other microscopic hematuria (principal) | CPT/HCPCS: 51798; 81003 ==

== ENCOUNTER 2025-06-03 15:19 | Outpatient (AMB) | payer BC, SELFPAY ==
--- NOTE | 2025-06-03 15:24 | A.OFFVIS_ITS ---
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 Required: No Accompanied by: Self / Same As Patient Allergies SEASONAL ALLERGIES Allergy (Mild, Uncoded 06/03/25 15:30) ITCHY EYES Medication List - Last Reconciled 06/03/25 by Jorge Tompkins MD cefuroxime axetil 250 mg PO BID 5 days empagliflozin (Jardiance) 10 mg PO DAILY FreeStyle Loni 2 [place] (flash glucose scanning reader) tid testing NS FreeStyle Loni 2 Sensor (flash glucose sensor) tid testing NS metformin ER 750 mg PO DAILY 30 days rivaroxaban 20 mg PO DAILY tirzepatide (Mounjaro) 2.5 mg (0.5 mL) subcut QWEEK HPI Comments Details: 45 YO M who is seen in consultation for T2DM at the request of PCP. Initially diagnosed with T2DM in couple of mos ago . Progressed from prediabetes . Was initially started on treatment with metformin . Current regimen Jardiance 10 mg QD not taken yet . Metformin ER750 mg QD Mounjaro 2.5 mg Qwkly not taking because of low blood pressure and decreased appetite Not Checks sugars times per day. Runs over 300 Unfortunately, patient did not bring sensor, glucometer or log book to visit Family history of T2DM in both parents . Has eyes checked yearly, last eye exam has appt 07/2025 , denies retinopathy. Denies neuropathy, Not sees podiatry. Denies nephropathy,Not on LANG/ARB. Not Has HLD, Not on statin. Last LDL [] as measured on []. Denies CAD. Had diabetes education. Was given Loni 3 sensor but did not start [facility] Medical History (Updated 05/05/25 @ 16:12 by Gianluca Gillette MD) Kidney calculi Type 2 diabetes mellitus Left leg DVT Surgical History History of hip surgery Family History Mother Diabetes Myocardial infarct Prothrombin gene mutation Stroke Mental health disorder Daughter Prothrombin gene mutation Brother Substance use disorder Social History Household Members: Spouse and Family Housing: House Patient Tobacco Use Status: Former Tobacco user e-Cigarette/Vaping Use: Never Used Second Hand Smoke Exposure: No service: No Current occupational status: employed 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 Absence of acromegalic features. Neck exam reveals nl size thyroid about 15 gms. No thyroid nodules palpable. No carotid bruits present. Lungs CTA. Heart S1 S2, Reg R/R. No M/R/ G. Skin exam reveals absence of vitiligo or acanthosis nigricans. Abdominal exam reveals Soft NT/ND with NA BS. No organomegaly present. Neck Other: . Extrem Other: Visual exam of foot performed. No ulcerations or open lesions. No onchomycosis, no callouses.Pulses 2 + distally Sensation intact to monofilament exam. Vibratory sensation sensed is intact with 128 Hz tuning fork Results AMB Hemoglobin A1c AMB Hemoglobin A1c 8.4 % Last Edit by LIO Rubio on 06/03/25 15:45 Results Reviewed Results Reviewed: Laboratory Last Values Glucose (Clinic) 218 mg/dL (60-115) H 06/03/25 15:35 Assessment & Plan Assessment & Plan (1) Type 2 diabetes mellitus: Code(s): E11.9 - Type 2 diabetes mellitus without complications Category: Medical Qualifiers: Diabetes mellitus complication status: with hyperglycemia Diabetes mellitus termite control representative insulin use: without intermediate use Qualified Code(s): E11.65 - Type 2 diabetes mellitus with hyperglycemia Plan: This is a 45-year-old white male with a history of ? TYpe 1 vs type 2 diabetes being treated , metformin with improving but poor glycemic control and no known microvascular or macrovascular complications Plan is to check anti-eliana 65 antibodies to rule out type 1 diabetes. Patient did not go for the blood test yet Hard to make adjustments in the regimen is no data today present . Initiated a Loni 3+ sensor We will refer patient to hospital educator and starch treating assistant. Most likely will need to initiate insulin once have more data regardless of what type of diabetes patient has considering her probably has glucose toxicity. Discussed extensively with patient the correlation of poor glycemic control with development of progression of complications Orders: Orders AMB Hemoglobin A1c Today E11.65 - Type 2 diabetes mellitus with hyperglycemia, Z13.9 - Encounter for screening, unspecified Coding Level of Care Code Est Pt Level 4 (84767) Diagnoses Type 2 diabetes mellitus with hyperglycemia, without long-term current use of insulin E11.65 Diabetes mellitus complication status: with hyperglycemia Diabetes mellitus termite control representative insulin use: without intermediate use
[2025-06-03 15:27] VITALS: BP 98/82; PULSE 81; O2SAT 99; BMI 28.5
[2025-06-03 15:39] LABS: Glucose, Whole Blood 218 mg/dL (60-115)
--- OUTSIDE RECORDS SUMMARY | 2025-06-03 18:15 | XMS_ITS | Encounter Summary ---
Author Organization [facility] Address [address] [place] [phone] Phone Care Team Providers Care Pump Installation And Servicer Name Role Phone Kalen Callejas NP Primary Care Provider + Reason for Referral * Consultation (Within 1 month) - Closed Specialty Diagnoses / Procedures Referred By Contac t Referred To Contact Diagnoses Deep vein thrombosis (DVT) of proximal vein of left lower extremity, unspecified chronicity [facility] Cardiology [address] [place] [address] Phone: tel: [address] [phone] Phone: tel: Referral ID Status Reason Start Date Expiration Date Visits Re quested Visits Authorized [id number] Closed 06/18/2017 06/18/2018 1 1 Encounter Details Date Type Department Care Team (Latest Contact Info) Description 06/18/2017 Transcribe Orders [facility] Cardiology [address] [place] [id number] Unknown, Unknown, Deep vein thrombosis (DVT) of proximal vein of left lower extremity, unspecified chronicity (Primary Dx) Social History Tobacco Use Types Packs/Day Years Used Date Smoking Tobacco: Never Assessed Sex and Gender Information Value Date Recorded Sex Assigned at Male 09/08/2019 8:48 AM EST Legal Sex Male 9:19 PM EDT Gender Identity Male 09/08/2019 8:48 AM EST Sexual Orientation Not on file documented as of this encounter Plan of Treatment Scheduled Referrals Name Type Priority Associated Diagnoses Orde r Schedule Ambulatory referral to [facility] Vascular Center/Stroke Outpatient Referral Routine Deep vein thrombosis (DVT) of proximal vein of left lower extremity, unspecified chronicity Ordered: 06/18/2017 documented as of this encounter Visit Diagnoses Diagnosis Deep vein thrombosis (DVT) of proximal vein of left lower extremity, unspecified chronicity- Primary documented in this encounter Care Teams Pump Installation And Servicer Relationship Specialty Start Date End Date Kalen Callejas NP [facility] [place] [address] PCP - General Family Medicine 05/07/17 documented as of this encounter Additional Source Comments The information contained in this document represents components of the legal health record. It is not the complete legal health record.[facility]
--- OUTSIDE RECORDS SUMMARY | 2025-06-03 18:15 | XMS_ITS | Clinical Summary ---
Author Organization Located [facility] Address [address] [place] [phone] Phone Care Team Providers Care Tailings Dam Pumper Name Role Phone Kalen Callejas F[employer] SEWER Primary Care Provider + Allergies No known active allergies Medications warfarin (COUMADIN) 5 MG tablet Take 5 mg by mouth daily. Active XARELTO 20 mg Tab Take 20 mg by mouth daily. 0 Active metFORMIN (GLUCOPHAGE-XR ) 750 MG 24 hr tablet 1 TABLET WITH EVENING MEAL BID ORALLY 30 0 Active amoxicillin (AMOXIL) 875 MG tablet Take 1 tablet (875 mg total) by mouth 2 (two) times a day for 10 days. 20 tablet 5 025 Active chlorhexidine (PERIDEX) 0.12 % solution Use as directed 15 mL in the mouth or throat 2 (two) times a day for 10 days. 300 mL 5 025 Active amoxicillin (AMOXIL) 875 MG tablet Take 1 tablet (875 mg total) by mouth 2 (two) times a day for 10 days. 20 tablet 5 025 Discontinued chlorhexidine (PERIDEX) 0.12 % solution Use as directed 15 mL in the mouth or throat 2 (two) times a day. 120 mL 5 025 Discontinued Active Problems No known active problems Encounters Date Type Department Care Team Description 05/28/2025 8:10 AM EDT Office Visit [facility] at [address] [place] [address] Liseth Cardenas NP Dental abscess (Primary Dx) 04/07/2025 3:10 PM EDT Office Visit [facility] at [address] [address] Mcai Haas, ARCHIVAL RECORDS CLERK Chronic dental pain (Primary Dx) from Last 3 Months Social History Tobacco Use Types Packs/Day Years [...] Sign Reading Time Taken Comments Blood Pressure 122/84 05/28/2025 8:16 AM EDT Pulse 71 05/28/2025 8:16 AM EDT Temperature 36.5 C (97.7 F) 05/28/2025 8:16 AM EDT Respiratory Rate 16 04/07/2025 3:59 PM EDT Oxygen Saturation 100% 05/28/2025 8:16 AM EDT Inhaled Oxygen Concentration - - Weight 86.2 [...] FOR DIABETES 2017 CREATININE LEVEL 09/08/2020 09/08/2019 INFLUENZA VACCINE (#1) 2025 COVID-19 VACCINE (2024-2 6 season) 2025 SMOKING STATUS SCREENING (On ce After 26 Yrs) Completed 04/07/2025 HEPATITIS A VACCINES Aged Out No long [...] Date/Time Associated Diagnosis Comments BASIC METABOLIC PANEL (BMP) STAT 09/08/2019 9:06 AM EST from Last 3 Months or Most Recently Relevant to Health Maintenance Results * (ABNORMAL) Basic metabolic panel (09/08/2019 9:06 AM EST) SODIUM 137 133 - 146 mmol/L [facility] CHLORIDE 99 96 - 108 mmol/L [facility] POTASSIUM 4.3 3.3 - 5.1 mmol/L [facility] CO2 27 21 - 35 mmol/L [facility] BUN 13 6 - 19 mg/dL [facility] CREATININE 0.80 0.5 - 1.5 mg/dL [facility] GLUCOSE 319(H) 70 - 99 mg/dL [facility] CALCIUM 9.3 8.4 - 10.3 mg/dL [facility] EGFR 114 >59 mL/min/1.7 3m2 [facility] Comment:If patient is black, multiply result by 1.159. Estimated glomerular filtration rate calculated using the CKD-EPI equation. ANION GAP 15 10 - 20 mmol/L [facility] Blood 09/08/2019 9:06 AM EST 09/08/2019 9:17 AM EST us Teofilo Rosario MD LAB BLOOD BKR ORDERABLE S Final Result [facility] [address] [place] [address] from Last 3 Months or Most Recently Relevant to Health Maintenance Insurance [facility] POS E[facility] Care Teams Tailings Dam Pumper Relationship Specialty Start Date End Date Kalen Callejas NP [address] [facility] [place] [address] PCP - General Family Medicine 05/07/17 Additional Source Comments The information contained in this document represents components of the legal health record. It is not the complete legal health record.[facility]
== END 2025-06-03 15:51 | disposition home or self-care (01) ==
LOC: HO.ENCR 15:20
PROVIDERS: PCP Nurse Practitioner Family; Visit Provider Internal Medicine Endocrinology, Diabetes & Metabolism
DX: Z13.9 Encounter for screening, unspecified (principal); E11.65 Type 2 diabetes mellitus with hyperglycemia
CPT/HCPCS: 99214

== ENCOUNTER → 2025-06-03 15:19 | Outpatient (BNVA) | payer BC, SELFPAY | PROVIDERS: PCP Nurse Practitioner Family; Visit Provider Internal Medicine Endocrinology, Diabetes & Metabolism | DX: E11.65 Type 2 diabetes mellitus with hyperglycemia (principal) | CPT/HCPCS: 82947; 83036 ==

== ENCOUNTER 2025-07-14 06:26 | Day surgery (SDC) | payer BC, SELFPAY ==
--- OUTSIDE RECORDS SUMMARY | 2025-06-17 19:36 | XMS_ITS | Encounter Summary ---
Author Organization [facility] Address [address] [place] [phone] Phone Care Team Providers Care Sack Sorter Name Role Phone Kalen Callejas NP Primary Care Provider + Reason for Referral * Consultation (Within 1 month) - Closed Specialty Diagnoses / Procedures Referred By Contac t Referred To Contact Diagnoses Deep vein thrombosis (DVT) of proximal vein of left lower extremity, unspecified chronicity [facility] Cardiology [address] [place] [address] Phone: tel: [address] [phone] Phone: tel: Referral ID Status Reason Start Date Expiration Date Visits Re quested Visits Authorized [id number] Closed 06/18/2017 06/18/2018 1 1 Encounter Details Date Type Department Care Team (Latest Contact Info) Description 06/18/2017 Transcribe Orders [facility] Cardiology [address] [place] [phone] Unknown, Unknown, Deep vein thrombosis (DVT) of [...] Diagnoses Orde r Schedule Ambulatory referral to [facility] Vascular Center/Stroke Outpatient Referral Routine Deep vein thrombosis (DVT) of proximal vein of left lower extremity, unspecified chronicity Ordered: 06/18/2017 documented as of this encounter Visit Diagnoses Diagnosis Deep vein thrombosis (DVT) of proximal vein of left lower extremity, unspecified chronicity- Primary documented in this encounter Care Teams Sack Sorter Relationship Specialty Start Date End Date Kalen Callejas NP [facility] [address] PCP - General Family Medicine 05/07/17 documented as of this encounter Additional Source Comments The information contained in this document represents components of the legal health record. It is not the complete legal health record.[facility]
[2025-07-12 08:41] VITALS: BMI 28.5
--- NOTE | 2025-07-12 09:46 | HO.ANESPROP2 ---
HPI - Anesthesia Eval Consult details Narrative: 45 yr old male for right lithotripsy ESW H/O DVT on xarelto Anesthesia Pre-Procedure Meds Is the patient on any of the following meds?: GLP1/DPP4 PMFSH Active Problems Active Problems: All Active Problems Kidney calculi (Acute) Encounter for routine adult physical exam with abnormal findings (Acute) Microscopic hematuria (Acute) DVT (deep venous thrombosis) (Chronic) Physical exam (Acute) Type 2 diabetes mellitus (Acute) Past Medical History Medical History (Updated 05/05/25 @ 16:12 by Gianluca Gillette MD) Kidney calculi Type 2 diabetes mellitus Left leg DVT Family History Family History Mother Diabetes Myocardial infarct Prothrombin gene mutation Stroke Mental health disorder Daughter Prothrombin gene mutation Brother Substance use disorder Surgical History Surgical History History of hip surgery Social History Social History Household Members: Spouse and Family Housing: House Patient Tobacco Use Status: Former Tobacco user e-Cigarette/Vaping Use: Never Used Second Hand Smoke Exposure: No service: No Current occupational status: employed 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 Rate : 77 BPM Atrial Rate : 77 BPM P-R Int : 174 ms QRS Dur : 98 ms QT Int : 382 ms P-R-T Axes : 62 21 36 degrees QTcB Int : 432 ms Normal sinus rhythm Normal ECG No previous ECGs available
--- NOTE | ~2025-07-14 | XR_ITS ---
CLINICAL HISTORY: kidney stone- right 1 view abdomen Comparison: None provided Findings: No pneumoperitoneum or pneumatosis. Moderate stool burden. No abnormal calcifications. Probable 3 mm right renal stone. No left renal stones. Phleboliths are present in the pelvis. Bilateral femoral neck screws are anatomic alignment. No acute fractures. IMPRESSION: Probable right renal stone measures 3 mm. Normal bowel-gas pattern. This document has been electronically signed by: Nas Murphy MD on 07/14/2025 06:52:09
[2025-07-14] MEDS: Lactated Ringers 1,000 ML 100 ML IVCONT (07:29)
[2025-07-14 07:31] LABS: Glucose, Whole Blood 256 mg/dL (60-115)
--- NOTE | 2025-07-14 07:43 | MHC.SHP ---
Pre-Procedural Eval Section A - 24 Hr Update-Section A only Date of Service: 07/14/25 The patient is an INPATIENT: No Changes since office visit: No Cold of Flu in the past 2 weeks, No New Medical Problems, No Changes in Medication and No Patient answered all questions The patient has been examined within 24 hours of the surgical procedure. The History & Physical has been completed within 30 days and I have reviewed it.: No Section B - Complete if H&P > 30 days Chief Complaint: Calculus of kidney Details of Present Illness: right lower pole 6mm stone Relevant Family History (Specify if Yes): No Relevant Social History: None Present Medications: None Medical History: No relevant PMH History of Previous Operations: No relevant previous surgery Allergies: Allergies Allergy/AdvReac Type Severity Reaction Status Date / Time SEASONAL ALLERGIES Allergy Mild ITCHY EYES Uncoded 06/03/25 15:30 Review of Systems Sugical H&P ROS: Negative: Constitution, Cardiovascular, Respiratory, Neurological, Psychiatric, Hem-Onc, Allergic/Immunologic, Gastrointestinal, Genitourinary, Musculoskeletal, Integumentary, Endocrine and Eyes/Ears/Nose/Throat Exam Surgical H&P Exam: Normal: HEENT, Normal: Heart, Normal: Lungs, Normal: Extremities, Normal: Abdomen, Normal: Skin and Normal: Neurological Plan Diagnosis/Plan: Unchanged (right ESWL) I have reviewed the history and physical and performed a pertinent physical examination on my patient. No changes have occurred unless specified. Time Spent With Patient Time: Total time managing care of this patient today ____ minutes.
[2025-07-14 08:17] LABS: Glucose, Whole Blood 220 mg/dL (60-115)
[2025-07-14 09:00] VITALS: BP 103/70; PULSE 77; RESP 10; TEMP 36.2; O2SAT 98
[2025-07-14 09:05] VITALS: BP 102/75; PULSE 72; RESP 12; O2SAT 98
[2025-07-14 09:05] LABS: Glucose, Whole Blood 220 mg/dL (60-115)
[2025-07-14 09:10] VITALS: BP 107/74; PULSE 75; RESP 16; O2SAT 97
[2025-07-14 09:15] VITALS: BP 105/75; PULSE 71; RESP 14; O2SAT 97
[2025-07-14 09:30] VITALS: BP 105/75; PULSE 71; RESP 16; O2SAT 96
[2025-07-14 09:45] VITALS: BP 109/77; PULSE 76; RESP 16; O2SAT 99
--- NOTE | 2025-07-27 21:49 | W.PM.OPN ---
Operative Note Operative Note Date of Service: 07/14/25 Narrative: PreOperative Diagnosis: Right Renal stones Post Operative Diagnosis: Right Renal stones Procedure: Right ESWL Surgeon: Dr Gianluca Gillette Anesthesia: mac/sedation Indications for procedure: The patient understands ESWL may be a staged procedure and subsequent intervention may be required based on imaging after ESWL. Quoted stone clearance rates for a solitary procedure are in the 70-80% range based primarily on stone location. They also understand there is a risk of bleeding to the kidney, infection, damage to adjacent organs, and stone migration following the procedure. - Imaging right 6 mm stone mid pole Procedure optimization has been performed with IV acetaminophen given in the holding area and 1 L of lactated Ringer's to be given in order to optimize the fluid-stone interface. 20 mg of IV Lasix will be given in the last 5 minutes of the procedure to optimize stone clearance. Procedure: After informed consent was verified the patient was brought to the operating room and placed in a supine position. Anesthesia was performed per protocol. Safety pause time-out was performed. Imaging was displayed in the room and laterality confirmed. ESWL was performed. The 1st 500 shocks were performed at 60 hertz. These were performed with increasing power. Once maximum power was reached the rate was increased to 180 hertz. A total of 2500 shocks were given. Targeted imaging with ultrasound/fluoroscopy showed stone smudging suggestive of disintegration. The patient tolerated the procedure well and was transferred to the recovery area upon completion. Post procedure imaging will be organized. There was no evidence for flank discoloration.
== END 2025-07-14 10:21 | disposition home or self-care (01) ==
PROVIDERS: PCP Nurse Practitioner Family; Visit Provider Urology
PROC: (CPT 50590; principal; 2025-07-14 08:20)
DX: N20.0 Calculus of kidney (principal); Z87.442 Personal history of urinary calculi; R31.29 Other microscopic hematuria; E11.9 Type 2 diabetes mellitus without complications; I82.502 Chronic embolism and thrombosis of unspecified deep veins of left lower extremity; Z79.01 Long term (current) use of anticoagulants; Z98.890 Other specified postprocedural states; Z87.891 Personal history of nicotine dependence
CPT/HCPCS: 50590; 74018; 82947; J0131; J2003; J2371; J2405; J2704; J3010

== ENCOUNTER → 2025-07-14 06:26 | Outpatient (BNV) | payer BC, SELFPAY | PROVIDERS: PCP Nurse Practitioner Family; Visit Provider Urology | DX: N20.0 Calculus of kidney (principal) | CPT/HCPCS: 50590 ==